=== PATIENT | female | born 1995 | race Two or more races ===

== ENCOUNTER 2019-08-17 17:07 | Inpatient (IN) | payer OTHER ==
--- NOTE | 2019-08-17 19:35 | HP ---
General Information - Reason for Visit early labor, with contractions q 3-5 min since this morning. +FM, -LOF - General Information Maternal Age: 24 Grav: 1 Para: 0 SAB: 0 IEA: 0 Estimated Due Date: 08/26/19 Determined By: Early Ultrasound Gestational Age in Weeks/Days: 38.5 Maternal Blood Type and Rh: A Positive - Results this Serology/RPR Result: Non-Reactive Rubella Result: Immune HBsAg Result: Negative HIV Result: Negative GBS Culture Result: Negative Past Medical History Pertinent Past Medical History: Non-Contributory Pertinent Past Surgical History: None Pertinent Family History: Non-Contributory - Antepartal Records Antepartal Records: Reviewed, Uncomplicated Review of Systems Constitutional: Uncomfortable CV Complaint: No Respiratory: Shortness of Breath: No Gastrointestinal: No Nausea/Vomiting, Normal Bowel Movement Genitourinary: No Dysuria, No Bleeding, No Leaking Fluid Musculoskeletal: No Epigastric Pain, Contractions Neurological: No Headache, No Visual Changes Movement: Normal Exam Allergies/Adverse Reactions: Allergies No Known Allergies Allergy (Verified 08/17/19 17:53) T:97.9, P:93, R:18, BP:105/71, O2:100% - Measurements Height: 5 ft 1 in Weight: 152 lb Weight in lbs: [id number] Body Mass Index (BMI): 28.7 Pre- Weight: 128 lb Weight Gained This : 24 lbs and 0 ozs - Exam Breast: Breast Exam Deferred CVA: No CVA Tenderness Extremities: No Edema Heart: Normal Rhythm/Heart Sounds HEENT: No Significant Findings Lungs: Clear Bilaterally Rectal: Rectal Exam Deferred Reflexes: DTR 2+ Thyroid: No Thyromegaly - Abdominal Exam Abdomen Exam: Non-Tender, Fundal Height Consistent with Dates - Ultrasound/Biophysical Profile Ultrasound Status: Not Done Targeted Exam Findings Estimated Weight: 2rey8ag Cervical Exam: 6cm Effacement: 100% Station: 0 Presenting Part: Vertex Membrane Status: Intact Bleeding/Discharge: None EFM Findings - External Monitor Findings Baseline Heart Rate: 140 External Monitor Findings: Accelerations Present, No Pattern of Variable or Late Decelerations, Variability Moderate, Baseline Stable Contractions: Regular, Moderate, 45-90 Seconds Contraction Frequency: 3-6 Assessment/Plan - Assessment 24 y.o. , 38w5d, Cat I NST, early-active labor - Plan Plan: Admit - Anticipate Vaginal Delivery Plan Comment: reevaluate in 2 hrs or sooner PRN - Date/Time of Admission Date of Admission: 08/17/19 Time of Admission: 18:00
[2019-08-17] MEDS ORDERED: Lactated Ringers 1000 ML Bag* 1,000 ML IV ONE (19:37)
[2019-08-17] MEDS ORDERED: Buffered Lidocaine 1% SYRIN* 1 ML/SYRINGE INTRADERM ONE (19:37)
[2019-08-17] MEDS ORDERED: Lactated Ringers 1000 ML Bag* 1,000 ML IV SCH (20:00)
[2019-08-17 20:13] LABS: ABS Eosinophils 0.1 10^3/ul (0-0.6); ABS Monocytes 0.8 10^3/ul (0-0.8); ABS Neutrophils 6.2 10^3/ul (1.5-7.7); Eosinophil % 0.7 %; Hematocrit 35 % (35-47); Hemoglobin 11.9 g/dL (12.0-16.0); Lymphocyte % 22.2 %; Mean Corpuscular HGB Conc 34 g/dL (31-36); Mean Corpuscular Hemoglobin 30 pg (27-31); Mean Corpuscular Volume 86 fL (80-97); Mean Platelet Volume 9.7 fL (7.4-10.4); Platelet Count 172 10^3/uL (150-450); Red Blood Count 4.03 10^6 /uL (3.70-4.87); Red Cell Distribution Width 15 % (10-15)
[2019-08-17 20:44] LABS: Urine Benzodiazepine Screen None Detected (None Detect); Urine Opiates Screen None Detected (None Detect)
[2019-08-17] MEDS ORDERED: OBEPIDURAL* 250 ML EPIDURAL ONE (23:56)
[2019-08-18] MEDS ORDERED: Sodium Citrate/Citric Acid* 15 ML UDC PO PRN (00:39)
[2019-08-18] MEDS ORDERED: Phenylephrine 40 MCG/ML SYRINGE IV PUSH PRN ×2 (00:39)
[2019-08-18] MEDS ORDERED: Lactated Ringers 1000 ML Bag* 1,000 ML IV ONE (00:39)
[2019-08-18] MEDS ORDERED: Lactated Ringers 1000 ML Bag* 1,000 ML IV SCH ×2 (01:00→08:00)
[2019-08-18] MEDS ORDERED: OBEPIDURAL* 250 ML EPIDURAL SCH (01:00)
--- NOTE | 2019-08-18 05:49 | PN ---
Progress Note - Progress Note Date of Service: 08/18/19 SOAP: Subjective: Pt c/o right upper hip pain and increased pressure with ctx. Pt reports relief in let sided "runner's" position. Objective: BP:99/73, P:124bpm, T:97.4, FHR: 140bpm, + accels, -decels, moderate variability , ctx q 3-5min cervix: 9/100/+1 Assessment: 24 y.o. , 38w 6d EGA, FHR Cat 1, active labor Plan: 1) Position changes for managing hip pain 2) Reevaluate in 1 hr or sooner PRN
[2019-08-18] MEDS ORDERED: Oxytocin in LR* 20 UNITS/1,000 ML BAG IVPB ONE (07:05)
[2019-08-18] MEDS ORDERED: Lidocaine 1% INJ* 10 MG/ML 30 ML SDV ONE (07:43)
[2019-08-18] MEDS ORDERED: Witch Hazel PAD* JAR TOPICAL PRN (07:50)
[2019-08-18] MEDS ORDERED: Dibucaine 1% 28.35 GM TUBE PR PRN (07:50)
[2019-08-18] MEDS ORDERED: Acetaminophen TAB* 325 MG PO PRN (07:50)
[2019-08-18] MEDS ORDERED: Glycerin ADULT SUPP PR PRN (07:50)
--- NOTE | 2019-08-18 07:53 | PROCNOTE ---
[facility] OB: Delivery Note - Delivery A Date of : 08/18/19 Time of : 07:07 Sex: Female Gestational Age in Weeks and Days at Delivery: 38 Weeks and 6 Days Delivery Method: Spontaneous Vaginal Labor: Spontaneous Amniotic Fluid: Clear Estimated Blood Loss: 250 Anesthesia/Analgesia: CEI for Labor Delivered By: Romi Devlin - Nursery Level of Nursery: Regular/Bedside - Perineum Perineal Injury: Perineal Laceration, 3rd Degree Extension Perineal Repair: Dr. Crisostomo - Events Delivery Events of Note: Pitocin Only After Delivery Delivery Events of Note Comment: nuchal cord x 1, easily reduced on perineum
[2019-08-18] MEDS ORDERED: Oxytocin in LR* 20 UNITS/1,000 ML BAG IVPB SCH (08:00)
--- NOTE | 2019-08-18 08:17 | PN ---
Progress Note - Progress Note Date of Service: 08/18/19 Note: note Called to see patient after recent by Romi Devlin CNM to consult on the perineal laceration. On inspection, there was a rather straight midline laceration that extended fully through the external anal sphincter, but not the internal sphincter or rectal mucosa. Rectal exam done. After injecting additional 1% lidocaine, an end-to-end sphincteroplasty was performed. Overlapping was not feasible as a great deal of the sphincter had retracted into the left side and the muscle belly was attached on the right. Four 3-0 Vicryl interrupted stitches were placed at multiple sites on the muscle and capsule with good approximation. At that time, the remainder of the perineum was reapproximated with 3-0 Vicryl Rapide. An additional stitch of 3-0 Rapide was used for the skin. At that time, bleeding was minimal, and pt was doing well.
[2019-08-18] MEDS ORDERED: Simethicone TAB* 80 MG TAB.CHEW PO SCH (08:30)
[2019-08-18] MEDS: Ibuprofen TAB* 600 MG PO PRN ×2 (10:24→20:09)
[2019-08-18] MEDS: Docusate CAP* 100 MG PO SCH ×3 (10:24→20:10)
[2019-08-19] MEDS: Ibuprofen TAB* 600 MG PO PRN ×3 (02:06→20:35)
[2019-08-19 07:19] LABS: ABS Eosinophils 0.2 10^3/ul (0-0.6); ABS Lymphocytes 2.6 10^3/ul (1.0-4.8); ABS Neutrophils 8.5 10^3/ul (1.5-7.7); Eosinophil % 1.5 %; Hematocrit 26 % (35-47); Lymphocyte % 21.3 %; Mean Corpuscular HGB Conc 35 g/dL (31-36); Mean Corpuscular Hemoglobin 30 pg (27-31); Mean Corpuscular Volume 86 fL (80-97); Mean Platelet Volume 9.3 fL (7.4-10.4); Nucleated Red Blood Cells % 0.1; Platelet Count 153 10^3/uL (150-450); Red Blood Count 3.01 10^6 /uL (3.70-4.87); Red Cell Distribution Width 15 % (10-15); White Blood Count 12.4 10^3/uL (3.5-10.8)
[2019-08-19] MEDS: Ferrous Gluconate TAB* 324 MG TAB PO SCH ×2 (08:58→20:35)
[2019-08-19] MEDS: Docusate CAP* 100 MG PO SCH ×3 (08:58→20:35)
[2019-08-20] MEDS: Ibuprofen TAB* 600 MG PO PRN (08:50)
[2019-08-20] MEDS: Docusate CAP* 100 MG PO SCH (08:50)
[2019-08-20] MEDS: Ferrous Gluconate TAB* 324 MG TAB PO SCH (08:51)
[2019-08-20 09:26] VITALS: BP 96/67
== END 2019-08-20 13:35 | disposition home or self-care (01) | DRG 542 ==
LOC: MCHOBOUT 17:07 → MCHOB 17:44
PROVIDERS: ADMIT Midwife; ATTEND Midwife
PROC: 10907ZC Drainage of Amniotic Fluid, Therapeutic from Products of Conception, Via Natural or Artificial Opening (ICD-10-PCS; 2019-08-17)
PROC: 10E0XZZ Delivery of Products of Conception, External Approach (ICD-10-PCS; principal; 2019-08-18)
PROC: 0DQR0ZZ Repair Anal Sphincter, Open Approach (ICD-10-PCS; 2019-08-18)
DX: O69.81X0 Labor and delivery complicated by cord around neck, without compression, not applicable or unspecified (principal); Z37.0 Single live birth; O70.20 Third degree perineal laceration during delivery, unspecified; O90.81 Anemia of the puerperium; Z3A.38 38 weeks gestation of pregnancy
CPT/HCPCS: 36415; 80307; 85025; 86850; 86900; 86901; A9270-GY